=== PATIENT | male | born 1970 | race Caucasian/White ===

== ENCOUNTER 2017-07-21 16:04 | Inpatient (IN) | payer SELFPAY ==
[~2017-07-21] VITALS: Ht 177.8 cm; Wt 101.6 kg
[2017-07-21 16:15] VITALS: BP 164/95; PULSE 93; TEMP 98.7
[2017-07-21 18:05] LABS: HEMATOCRIT 42.4 % (42.0-52.0); HEMOGLOBIN 15.2 g/dl (13.5-18.0); MEAN CELL VOLUME 87 fl (80.0-100.0); MEAN CORPUSCULAR HEMOGLOBIN 31 pg (27.0-31.0); MEAN CORPUSCULAR HGB CONC 36 g/dl (33.0-37.0); MEAN PLATELET VOLUME 9.8 fl (7.4-10.4); PLATELET COUNT 279 K/mm3 (130-400); RED BLOOD COUNT 4.85 M/mm3 (4.20-5.60); REDCELL DISTRIBUTION WIDTH-CV 11.6 % (11.5-14.5)
[2017-07-21 18:13] LABS: ALBUMIN 3.5 gm/dL (3.5-5.0); BILIRUBIN,TOTAL 1.1 mg/dL (0.0-1.0); CALCIUM 8.2 mg/dL (8.4-10.2); CREATININE, serum 1.8 mg/dL (0.66-1.25); TOTAL PROTEIN 7.7 gm/dL (6.4-8.2)
[2017-07-21 19:50] VITALS: BP 110/74; PULSE 92
[2017-07-21 20:05] VITALS: BP 126/81; PULSE 92
[2017-07-21 20:20] VITALS: BP 110/78; PULSE 89
[2017-07-21 22:35] VITALS: BP 143/90; PULSE 97
[2017-07-21 23:35] VITALS: BP 158/87; PULSE 122
[2017-07-22] VITALS (14 sets, daily range): BP systolic 98–147; BP diastolic 70–90; PULSE 87–105; TEMP 97.9–100.4
[2017-07-22 00:16] LABS: BASO # 0.1 (0.0-0.2); BASO % 0.4 % (0.0-2.0); EOS # 0.1 (0.0-0.7); EOS % 0.8 % (0-4.0); GRAN # 12.8 (1.4-6.5); GRAN % 83.3 % (42.2-75.2); HEMATOCRIT 40.1 % (42.0-52.0); HEMOGLOBIN 13.9 g/dl (13.5-18.0); LYMPH % 6.3 % (20.0-51.0); MEAN CELL VOLUME 89 fl (80.0-100.0); MEAN CORPUSCULAR HEMOGLOBIN 31 pg (27.0-31.0); MEAN CORPUSCULAR HGB CONC 35 g/dl (33.0-37.0); MEAN PLATELET VOLUME 9.8 fl (7.4-10.4); MONO # 1.3 (0.1-0.6); MONO % 8.5 % (1.7-9.3); PLATELET COUNT 256 K/mm3 (130-400); REDCELL DISTRIBUTION WIDTH-CV 11.8 % (11.5-14.5)
[2017-07-22 00:19] LABS: CALCIUM 7.7 mg/dL (8.4-10.2); CREATININE, serum 1.82 mg/dL (0.66-1.25); POTASSIUM 4.2 mmol/L (3.4-5.0)
[2017-07-22 07:50] LABS: HEMATOCRIT 37.8 % (42.0-52.0); HEMOGLOBIN 13.2 g/dl (13.5-18.0); MEAN CELL VOLUME 89 fl (80.0-100.0); MEAN CORPUSCULAR HEMOGLOBIN 31 pg (27.0-31.0); MEAN CORPUSCULAR HGB CONC 35 g/dl (33.0-37.0); MEAN PLATELET VOLUME 9.7 fl (7.4-10.4); PLATELET COUNT 246 K/mm3 (130-400); RED BLOOD COUNT 4.25 M/mm3 (4.20-5.60); REDCELL DISTRIBUTION WIDTH-CV 11.7 % (11.5-14.5)
[2017-07-22 07:58] LABS: BILIRUBIN,TOTAL 0.8 mg/dL (0.0-1.0); CALCIUM 7.3 mg/dL (8.4-10.2); CREATININE, serum 1.66 mg/dL (0.66-1.25); MAGNESIUM 1.6 mg/dL (1.6-2.3); POTASSIUM 4.3 mmol/L (3.4-5.0); TOTAL PROTEIN 6.6 gm/dL (6.4-8.2)
[2017-07-22 08:06] LABS: BAND 21 % (0-10); LYMPHOCYTE 10 % (20.0-51.0); NEUTROPHILS 67 % (42.0-75.2); PLATELET ESTIMATE NORMAL (NORMAL)
[2017-07-23 02:12] VITALS: BP 129/75; PULSE 93; TEMP 99.7
[2017-07-23 05:10] VITALS: BP 123/50; PULSE 90; TEMP 98.6
[2017-07-23 07:36] LABS: BASO # 0.1 (0.0-0.2); BASO % 0.6 % (0.0-2.0); EOS # 0.4 (0.0-0.7); EOS % 3.3 % (0-4.0); GRAN # 8.5 (1.4-6.5); GRAN % 72.5 % (42.2-75.2); HEMOGLOBIN 12.3 g/dl (13.5-18.0); LYMPH # 1.3 (1.2-3.4); LYMPH % 11.1 % (20.0-51.0); MEAN CELL VOLUME 91 fl (80.0-100.0); MEAN CORPUSCULAR HEMOGLOBIN 31 pg (27.0-31.0); MEAN CORPUSCULAR HGB CONC 34 g/dl (33.0-37.0); MEAN PLATELET VOLUME 9.9 fl (7.4-10.4); MONO # 1.3 (0.1-0.6); PLATELET COUNT 247 K/mm3 (130-400); RED BLOOD COUNT 3.93 M/mm3 (4.20-5.60); REDCELL DISTRIBUTION WIDTH-CV 11.7 % (11.5-14.5)
[2017-07-23 07:41] LABS: HEMATOCRIT 35.9 % (42.0-52.0)
[2017-07-23 07:45] LABS: CALCIUM 7.2 mg/dL (8.4-10.2); CREATININE, serum 1.31 mg/dL (0.66-1.25); POTASSIUM 3.6 mmol/L (3.4-5.0)
[2017-07-23 13:40] VITALS: BP 153/90; PULSE 90; TEMP 98.9
[2017-07-23 17:42] VITALS: BP 142/92; PULSE 88; TEMP 99.3
[2017-07-23 22:05] VITALS: BP 141/91; PULSE 85; TEMP 98.3
[2017-07-24 02:02] VITALS: BP 139/87; PULSE 84; TEMP 98.1
[2017-07-24 05:31] VITALS: BP 146/90; PULSE 84; TEMP 98.6
[2017-07-24 08:49] LABS: HEMOGLOBIN 12.4 g/dl (13.5-18.0); MEAN CELL VOLUME 91 fl (80.0-100.0); MEAN CORPUSCULAR HEMOGLOBIN 31 pg (27.0-31.0); MEAN CORPUSCULAR HGB CONC 35 g/dl (33.0-37.0); MEAN PLATELET VOLUME 9.4 fl (7.4-10.4); PLATELET COUNT 234 K/mm3 (130-400); RED BLOOD COUNT 3.96 M/mm3 (4.20-5.60); REDCELL DISTRIBUTION WIDTH-CV 11.7 % (11.5-14.5)
[2017-07-24 08:50] LABS: HEMATOCRIT 35.9 % (42.0-52.0)
[2017-07-24 08:58] LABS: CALCIUM 7.4 mg/dL (8.4-10.2); CREATININE, serum 1.03 mg/dL (0.66-1.25)
[2017-07-24 09:46] VITALS: BP 168/100; PULSE 80; TEMP 98
[2017-07-24 10:38] LABS: BAND 5 % (0-10); BASOPHIL 1 % (0-2); EOSINOPHIL 3 % (0-4); LYMPHOCYTE 15 % (20.0-51.0); METAMYELOCYTE 1 % (0-0); NEUTROPHILS 70 % (42.0-75.2)
[2017-07-24 10:42] LABS: PLATELET ESTIMATE NORMAL (NORMAL)
== END 2017-07-24 13:37 | disposition home or self-care (01) | DRG 674 ==
LOC: JCC 16:04
PROVIDERS: Internal Medicine; Nurse Practitioner Family; Physician Assistant; Urology
PROC: 0TF78ZZ Fragmentation in Left Ureter, Via Natural or Artificial Opening Endoscopic (ICD-10-PCS; principal; 2017-07-21 18:00)
PROC: 0T778DZ Dilation of Left Ureter with Intraluminal Device, Via Natural or Artificial Opening Endoscopic (ICD-10-PCS; 2017-07-21 18:00)
PROC: 0Y950ZZ Drainage of Right Inguinal Region, Open Approach (ICD-10-PCS; 2017-07-22)
DX: N20.1 Calculus of ureter (principal); L02.214 Cutaneous abscess of groin; N17.9 Acute kidney failure, unspecified; E87.1 Hypo-osmolality and hyponatremia; E87.2 Acidosis; E11.65 Type 2 diabetes mellitus with hyperglycemia; I10 Essential (primary) hypertension; E11.42 Type 2 diabetes mellitus with diabetic polyneuropathy; Z91.14 Patient's other noncompliance with medication regimen; B95.1 Streptococcus, group B, as the cause of diseases classified elsewhere; M48.07 Spinal stenosis, lumbosacral region; I73.9 Peripheral vascular disease, unspecified
CPT/HCPCS: 99223-AI; 99232-AI; 99233-AI; 99239; C1769; C1894; C2617; J0360; J0696; J1815; J2060; J2270; J2405; J2704; J3010; J3370; J7030; J7050

== ENCOUNTER → 2018-02-08 | Outpatient (CLI) | payer SELFPAY | LOC: COL.RAD 16:01 | DX: L03.116 Cellulitis of left lower limb (principal) ==

== ENCOUNTER 2018-08-08 08:11 | Day surgery (SDC) | payer SELFPAY ==
[2018-08-08] VITALS (11 sets, daily range): BP systolic 112–161; BP diastolic 72–106; PULSE 69–98; TEMP 97.7–98.1
[~2018-08-08] VITALS: Ht 177.8 cm; Wt 101.0 kg
[2018-08-08 10:42] LABS: HEMOGLOBIN 12.4 g/dl (13.5-18.0); MEAN CELL VOLUME 87 fl (80.0-100.0); MEAN CORPUSCULAR HEMOGLOBIN 29 pg (27.0-31.0); MEAN CORPUSCULAR HGB CONC 34 g/dl (33.0-37.0); MEAN PLATELET VOLUME 9.4 fl (7.4-10.4); PLATELET COUNT 175 K/mm3 (130-400); RED BLOOD COUNT 4.26 M/mm3 (4.20-5.60); REDCELL DISTRIBUTION WIDTH-CV 15.2 % (11.5-14.5)
[2018-08-08] MEDS ORDERED: PRINIVIL5 MG PO (10:45)
[2018-08-08 10:50] LABS: HEMATOCRIT 36.9 % (42.0-52.0)
[2018-08-08] MEDS ORDERED: LASIX 40MG TABL40 MG PO (10:51)
[2018-08-08 10:52] LABS: INR 1.1 (0.8-3.0); PROTHROMBIN TIME 12.4 SECONDS (9.7-12.8)
[2018-08-08] MEDS ORDERED: COREG12.5 MG PO (10:52)
[2018-08-08] MEDS ORDERED: NOVOLIN R100 U/ML SQ (10:52)
[2018-08-08] MEDS ORDERED: MULTI VITAMINS1 TAB PO (10:53)
[2018-08-08] MEDS ORDERED: LEVEMIR100 U/ML SQ (10:53)
[2018-08-08] MEDS ORDERED: NATURE'S BLEND100 M2 PO (10:54)
[2018-08-08] MEDS ORDERED: FOLIC ACID 11 MG/TA1 PO (10:54)
[2018-08-08 10:55] LABS: CALCIUM 9.3 mg/dL (8.4-10.2); CREATININE, serum 0.95 (0.66-1.25); POTASSIUM 3.7 mmol/L (3.4-5.0)
[2018-08-08] MEDS ORDERED: COREG 25MG25 MG/TAB PO (11:18)
--- NOTE | 2018-08-08 12:53 | NUR ---
ALL MEDICATIONS GIVEN VORB WITH MD. SEE MERGE FOR ALL MEDICATION ADMIN TIMES. SEE MERGE FOR ALL RASS ASSESSMENTS DURING AND POST PROCEDURE. POSITIVE BARBEAU'S TEST IN THE RIGHT WRIST.
--- NOTE | 2018-08-08 13:50 | NUR ---
Pt returned to EU 11 per bed s/p heart cath. Pt resting well.
[2018-08-08] MEDS ORDERED: PRINIVIL20 MG PO (15:16)
--- NOTE | 2018-08-08 16:20 | NUR ---
Radial band removed from R wrist. R wrist site remains soft, C/D/I. Site covered with bandaid and gauze and wrapped with coban. Pt has ambulated, voided and erika PO intake s n/v.
--- NOTE | 2018-08-08 16:55 | NUR ---
PIV removed from R AC with catheter intact.
--- NOTE | 2018-08-08 17:07 | NUR ---
Report to Chadwick Vargas RN who assumed care at this time.
--- NOTE | 2018-08-08 17:10 | NUR ---
Report received from Enrique Blanco.
--- NOTE | 2018-08-08 17:16 | NUR ---
Pt escorted out by this nurse.
== END 2018-08-08 17:16 | disposition home or self-care (01) ==
LOC: COL.CAR 08:11
PROVIDERS: Internal Medicine Cardiovascular Disease
DX: I25.10 Atherosclerotic heart disease of native coronary artery without angina pectoris (principal); R94.39 Abnormal result of other cardiovascular function study; I11.0 Hypertensive heart disease with heart failure; I50.22 Chronic systolic (congestive) heart failure; E78.5 Hyperlipidemia, unspecified; E11.9 Type 2 diabetes mellitus without complications; Z79.4 Long term (current) use of insulin; Z83.3 Family history of diabetes mellitus; F10.10 Alcohol abuse, uncomplicated
CPT/HCPCS: J1644; J1940; J2250; J3010; Q9967

== ENCOUNTER 2018-09-08 12:29 | Day surgery (SDC) | payer SELFPAY ==
[~2018-09-08] VITALS: Ht 177.8 cm; Wt 96.0 kg
[2018-09-08] VITALS (165 sets, daily range): BP systolic 114–148; BP diastolic 60–98; PULSE 67–77; TEMP 98.4–98.6; O2SAT 89–100
[~2018-09-08 12:29] MED LIST: COREG 25MG25 MG/TAB PO; COREG12.5 MG PO; FOLIC ACID 11 MG/TA1 PO; LASIX 40MG TABL40 MG PO; LEVEMIR100 U/ML SQ; MULTI VITAMINS1 TAB PO; NATURE'S BLEND100 M2 PO; NOVOLIN R100 U/ML SQ; PRINIVIL20 MG PO; PRINIVIL5 MG PO
[2018-09-08] MEDS ORDERED: ENTRESTO 24 MG1 EACH PO (13:29)
[2018-09-08] MEDS ORDERED: LIPITOR20 MG PO (13:29)
[2018-09-08 13:59] LABS: HEMATOCRIT 42.4 % (42.0-52.0); HEMOGLOBIN 14.9 g/dl (13.5-18.0); MEAN CELL VOLUME 85 fl (80.0-100.0); MEAN CORPUSCULAR HEMOGLOBIN 30 pg (27.0-31.0); MEAN CORPUSCULAR HGB CONC 35 g/dl (33.0-37.0); MEAN PLATELET VOLUME 9.3 fl (7.4-10.4); PLATELET COUNT 183 K/mm3 (130-400); RED BLOOD COUNT 5.01 M/mm3 (4.20-5.60); REDCELL DISTRIBUTION WIDTH-CV 14.5 % (11.5-14.5)
[2018-09-08 14:03] LABS: INR 1.1 (0.8-3.0); PROTHROMBIN TIME 12.3 SECONDS (9.7-12.8)
[2018-09-08 14:14] LABS: CALCIUM 9.9 mg/dL (8.4-10.2); CREATININE, serum 1.28 (0.66-1.25); POTASSIUM 4.8 mmol/L (3.4-5.0)
--- NOTE | 2018-09-08 14:34 | NUR ---
SEE MERGE DOCUMENTATION FOR MEDICATION ADMINISTRATION TIMES AND INTRA/POST PROCEDURE SEDATION ASSESSMENTS.
--- NOTE | 2018-09-08 17:45 | NUR ---
Pt arrived to ICU room 5 from [employer] [employer] lab[employer] via bed. Pt A/Ox3. Denies any pain. Pt laying flat in bed. Right femoral sheath in place, area soft, drsg C/D/I. HR SR 60s on monitor. Discussed plan of care to pt r/t right femoral sheath, post cardiac cath checks and laying flat. Pt verbalized understanding. Left AC PIV has some drainage when flushed and butler. Right hand PIV 20g placed. Left AC PIV dc'd. Pt ordered dinner and call light in reach.
--- NOTE | 2018-09-08 19:15 | NUR ---
Report given to BETHANY Borjas.
--- NOTE | 2018-09-08 19:39 | NUR ---
received report from ming lewis.
--- NOTE | 2018-09-08 19:50 | NUR ---
patient is currently in bed eating.
[2018-09-09] VITALS (432 sets, daily range): BP systolic 113–145; BP diastolic 60–90; PULSE 65–68; TEMP 98–98.7; O2SAT 88–100
--- NOTE | 2018-09-09 04:12 | NUR ---
patient noted that both feet felt like they were going numb. I had the patient push\pull against my hands with his feet. I also had the patient wiggle his toes. pulses were present. reassured patient that it was possibly due to being flat for such a long perid of time. will continue to monitor patient.
--- NOTE | 2018-09-09 07:25 | NUR ---
GAVE REPORT TO BETHANY CHAMBERS.
--- NOTE | 2018-09-09 08:01 | NUR ---
Dr. Lanier at bedside to pull right femral sheath. Sheath removed and manual pressure applied by Dr. Lanier. Patient tolerating well, minimal bleeding at this time.
--- NOTE | 2018-09-09 08:31 | NUR ---
Manual compression done at this time by Dr. Lanier, no bleeding or oozing noted. Pressure dressing of gauze and tegaderm place to Right groin, will monitor for bleeding/hematoma. Patient tolerates well. Denies needs at this time.
[2018-09-09] MEDS ORDERED: BRILINTA90 MG PO ×2 (08:40)
[2018-09-09] MEDS ORDERED: LIPITOR20 MG PO (08:40)
[2018-09-09] MEDS ORDERED: ASPIRIN E.C. 8181 MG PO (08:41)
[2018-09-09] MEDS ORDERED: NYAMYC100000 U/G TP (08:43)
--- NOTE | 2018-09-09 12:33 | NUR ---
Dr. Lanier called regarding Brilinta order. Patient and family are wanting to change to Plavix as patient doesn't have insurance and can't afford Brillinta at this time. Orders recieved to change to Plavix. Plavix 600mg PO tonight and then start Plavix 75mg PO daily tomorrow. RX called to [facility] pharmacy.
[2018-09-09] MEDS ORDERED: PLAVIX 300MG T300 MG PO (12:37)
[2018-09-09] MEDS ORDERED: PLAVIX 75MG TAB75 MG PO (12:40)
--- NOTE | 2018-09-09 13:30 | NUR ---
Discharge instructions, post cath instructions and discharge medications reviewed with patient and sister. Questions answered. Patient instructed to call Dr. Lanier's office to make follow up appointment, as they are not open on Tuesday'. States understanding. Number to ICU given in case of questions and encouraged to call.
--- NOTE | 2018-09-09 13:35 | NUR ---
Ambulatory to POV to discharge home with sister driving. While standing outside waiting for sister does complain of being dizzy. "I think it's the sun, it's so bright out here." Denies need to return inside hospital or need for assistance. Encouraged patient and sister to eat, as patient hasn't eaten all day, voice ok. Reiterated to call ER/ICU if any questions or concerns after discharge, voice understanding.
== END 2018-09-09 13:35 | disposition home or self-care (01) ==
LOC: COL.CAR 12:29 → ICU 18:09 → COL.CAR 09-09 13:35
PROVIDERS: Internal Medicine Cardiovascular Disease
DX: I25.10 Atherosclerotic heart disease of native coronary artery without angina pectoris (principal); I11.0 Hypertensive heart disease with heart failure; I50.22 Chronic systolic (congestive) heart failure; E78.5 Hyperlipidemia, unspecified; Z79.4 Long term (current) use of insulin; E11.9 Type 2 diabetes mellitus without complications; G47.33 Obstructive sleep apnea (adult) (pediatric); F10.10 Alcohol abuse, uncomplicated; Z82.49 Family history of ischemic heart disease and other diseases of the circulatory system; Z83.3 Family history of diabetes mellitus; Z87.891 Personal history of nicotine dependence
CPT/HCPCS: OP; J1644; J1815; J2250; J3010; Q9967

== ENCOUNTER 2020-05-27 11:34 | Emergency (ER) | payer BC ==
[~2020-05-27] VITALS: Ht 177.8 cm; Wt 109.1 kg
[~2020-05-27 11:34] MED LIST changes: +ASPIRIN E.C. 8181 MG PO; +BRILINTA90 MG PO; +ENTRESTO 24 MG1 EACH PO; +LIPITOR20 MG PO; +NYAMYC100000 U/G TP; +PLAVIX 300MG T300 MG PO; +PLAVIX 75MG TAB75 MG PO
[2020-05-27 11:43] VITALS: TEMP 97.4
[2020-05-27 12:15] LABS: BASO # 0.1 (0.0-0.2); BASO % 1.8 % (0.0-2.0); EOS # 0.4 (0.0-0.7); EOS % 6.3 % (0-4.0); GRAN # 3.9 (1.4-6.5); GRAN % 63.8 % (42.2-75.2); HEMOGLOBIN 16.1 g/dl (13.5-18.0); LYMPH # 1.1 (1.2-3.4); LYMPH % 18.2 % (20.0-51.0); MEAN CELL VOLUME 91 fl (80.0-100.0); MEAN CORPUSCULAR HEMOGLOBIN 30 pg (27.0-31.0); MEAN CORPUSCULAR HGB CONC 34 g/dl (33.0-37.0); MEAN PLATELET VOLUME 9.7 fl (7.4-10.4); MONO # 0.6 (0.1-0.6); MONO % 9.6 % (1.7-9.3); PLATELET COUNT 290 K/mm3 (130-400); REDCELL DISTRIBUTION WIDTH-CV 13.9 % (11.5-14.5)
[2020-05-27 12:24] LABS: ALBUMIN 3.7 gm/dL (3.5-5.0); BILIRUBIN,TOTAL 1.4 mg/dL (0.0-1.0); CREATININE, serum 1.22 (0.66-1.25); POTASSIUM 4.2 mmol/L (3.4-5.0); TOTAL PROTEIN 7.6 gm/dL (6.4-8.2)
[2020-05-27 12:25] LABS: INR 1.1 (0.8-3.0); PROTHROMBIN TIME 12.4 SECONDS (9.7-12.8)
[2020-05-27 12:36] LABS: TROPONIN-I 0.018 ng/mL (0.000-0.035)
[2020-05-27 15:26] VITALS: BP 160/119; PULSE 82
== END 2020-05-27 15:26 | disposition home or self-care (01) ==
LOC: COL.ER 11:34
PROVIDERS: Family Medicine
DX: I11.0 Hypertensive heart disease with heart failure (principal); B36.0 Pityriasis versicolor; I50.9 Heart failure, unspecified; E10.9 Type 1 diabetes mellitus without complications; Z79.82 Long term (current) use of aspirin; Z79.4 Long term (current) use of insulin; Z79.02 Long term (current) use of antithrombotics/antiplatelets
CPT/HCPCS: J1940

== ENCOUNTER 2021-05-29 08:52 | Day surgery (SDC) | payer BC ==
[2021-05-29] VITALS (8 sets, daily range): BP systolic 147–181; BP diastolic 99–127; PULSE 69–80; TEMP 98.1
[~2021-05-29] VITALS: Ht 177.8 cm; Wt 108.0 kg
[2021-05-29] MEDS ORDERED: LIPITOR 40MG TA40 MG PO (09:54)
[2021-05-29 09:55] LABS: HEMOGLOBIN 14.4 g/dl (13.5-18.0); MEAN CELL VOLUME 88 fl (80.0-100.0); MEAN CORPUSCULAR HEMOGLOBIN 30 pg (27-31); MEAN CORPUSCULAR HGB CONC 34 g/dl (33.0-37.0); MEAN PLATELET VOLUME 10.1 fl (7.4-10.4); PLATELET COUNT 205 K/mm3 (130-400); RED BLOOD COUNT 4.79 M/mm3 (4.20-5.60); REDCELL DISTRIBUTION WIDTH-CV 14.4 % (11.5-14.5)
[2021-05-29] MEDS ORDERED: ENTRESTO 49 MG1 EACH PO ×2 (09:55→12:12)
[2021-05-29] MEDS ORDERED: ASPIRIN 81M81 MG/TA2 PO (09:56)
[2021-05-29] MEDS ORDERED: PLAVIX 75MG TAB75 MG PO (09:56)
[2021-05-29 10:01] LABS: INR 1.4 (0.8-3.0); PROTHROMBIN TIME 15.8 SECONDS (9.7-12.8)
[2021-05-29] MEDS ORDERED: GLUCOPHAGE500 MG/TAB PO (10:01)
[2021-05-29 10:04] LABS: PARTIAL THROMBOPLASTIN TIME 36.3 SECONDS (26.0-37.0)
[2021-05-29 10:08] LABS: CALCIUM 8.3 mg/dL (8.4-10.2); CREATININE, serum 1.1 mg/dL (0.72-1.25); POTASSIUM 4.3 mmol/L (3.5-4.5)
[2021-05-29] MEDS ORDERED: COREG 25MG25 MG/TAB PO (12:15)
--- NOTE | 2021-05-29 15:53 | NUR ---
Discharge instructions given to pt.Pt verbalizes understanding.Pt escorted out via wheelchair by this nurse.
== END 2021-05-29 16:01 ==
LOC: COL.CAR 08:52
PROVIDERS: Internal Medicine Cardiovascular Disease
DX: Z79.02 Long term (current) use of antithrombotics/antiplatelets (principal); I13.0 Hypertensive heart and chronic kidney disease with heart failure and stage 1 through stage 4 chronic kidney disease, or unspecified chronic kidney disease; I50.22 Chronic systolic (congestive) heart failure; N18.9 Chronic kidney disease, unspecified; E10.22 Type 1 diabetes mellitus with diabetic chronic kidney disease; I42.9 Cardiomyopathy, unspecified; E78.5 Hyperlipidemia, unspecified; L03.119 Cellulitis of unspecified part of limb; Z79.899 Other long term (current) drug therapy; Z95.5 Presence of coronary angioplasty implant and graft; Z79.2 Long term (current) use of antibiotics; Z79.82 Long term (current) use of aspirin; Z79.4 Long term (current) use of insulin
CPT/HCPCS: J1644; J1940; J2250; J3010; J7030; Q9967